=== PATIENT | female | born 1965 | race Caucasian/White ===

== ENCOUNTER → 2020-10-26 | Outpatient (CLI) | payer OTHER ==
[~2020-10-26] MED LIST: BYDUINJ SC; COUM7.5T PO; NEXI1CAP3 GT; NEXI40GR PO; PERC2.5T PO; TYLE325T5 PO; VENL37TA OR; [UNRECOGNIZED DRUG - CODE] PO; [UNRECOGNIZED DRUG - OTHER] OR; [UNRECOGNIZED DRUG - OTHER] OR
--- NOTE | 2020-10-26 15:13 | REP ---
INDICATION: HYPERPARATHYROIDISM, UNSPECIFIED. COMPARISON: None. TECHNIQUE/RADIOTRACER AND DOSE: Following the intravenous administration of 26.6 mCi technetium 99 M sestamibi, 15 minutes and 3 hour post injection images are performed in various projections with SPECT imaging also performed. FINDINGS: The initial images show symmetrical salivary gland and thyroid uptake. On the delayed images there is washout from the thyroid bed but there is a persistent focus of increased uptake inferiorly on the left consistent with a parathyroid adenoma. IMPRESSION: Findings consistent with a parathyroid adenoma in the region of the inferior left thyroid bed. <Electronically signed by Jero Handley > 10/26/20 [id number]
== END ==
LOC: M RAD 09:33
PROVIDERS: ATTEND Internal Medicine Endocrinology, Diabetes & Metabolism
DX: E21.3 Hyperparathyroidism, unspecified (principal)
CPT/HCPCS: 78070; 78803; A9500

== ENCOUNTER → 2022-01-28 | Outpatient (CLI) | payer OTHER | LOC: M SLEEP HO 12:30 | PROVIDERS: ATTEND Nurse Practitioner Family | DX: R06.83 Snoring (principal) ==

== ENCOUNTER → 2022-04-21 | Outpatient (CLI) | payer OTHER | LOC: M SLEEP 20:00 | PROVIDERS: ATTEND Nurse Practitioner Family | DX: G47.33 Obstructive sleep apnea (adult) (pediatric) (principal) ==